=== PATIENT | male | born 1980 | race Caucasian/White ===

== ENCOUNTER 2016-10-26 13:12 | Emergency (ER) | payer BC ==
[~2016-10-26 13:12] MED LIST: NAPROXEN PO
== END 2016-10-26 13:27 | disposition home or self-care (01) ==
LOC: CED 13:12
DX: S56.211A Strain of other flexor muscle, fascia and tendon at forearm level, right arm, initial encounter (principal); X58.XXXA Exposure to other specified factors, initial encounter; Y92.009 Unspecified place in unspecified non-institutional (private) residence as the place of occurrence of the external cause
CPT/HCPCS: 29125; 99283